=== PATIENT | female | born 2000 | race African-American/Black ===

== ENCOUNTER 2021-02-01 18:23 | Emergency (ER) | payer MEDICAID ==
[~2021-02-01] VITALS: Ht 157.5 cm; Wt 81.2 kg
[~2021-02-01 18:23] MED LIST: PRON INH
[2021-02-01 19:11] VITALS: BP 118/78
[2021-02-01] MEDS ORDERED: ONDANSETRON 4 MG ODT PO ONE (19:45)
[2021-02-01 21:06] VITALS: BP 122/81
[2021-02-01] MEDS ORDERED: ONDA4TAB PO (21:07)
== END 2021-02-01 21:22 | disposition home or self-care (01) ==
LOC: MED 18:23
DX: R11.2 Nausea with vomiting, unspecified (principal); R19.7 Diarrhea, unspecified; J45.909 Unspecified asthma, uncomplicated; Z20.822 Contact with and (suspected) exposure to COVID-19
CPT/HCPCS: 81025; 99283; Q0162; U0003

== ENCOUNTER 2021-02-05 20:51 | Emergency (ER) | payer MEDICAID ==
[~2021-02-05] VITALS: Ht 157.5 cm; Wt 76.7 kg
[~2021-02-05 20:51] MED LIST changes: +ONDA4TAB PO
[2021-02-05 21:03] VITALS: BP 115/73
[2021-02-05] MEDS ORDERED: METOCLOPRAMIDE 10 MG TAB PO ONE (22:20)
[2021-02-05] MEDS ORDERED: KETOROLAC 30 MG/ML VIAL IM ONE (22:45)
[2021-02-05] MEDS ORDERED: METO-486 PO (23:48)
[2021-02-05] MEDS ORDERED: KETOROLAC 30 MG/ML VIAL ONE (23:51)
[2021-02-05] MEDS ORDERED: METOCLOPRAMIDE 10 MG TAB ONE (23:51)
[2021-02-06 00:16] VITALS: BP 118/78
== END 2021-02-06 00:16 | disposition home or self-care (01) ==
LOC: MED 20:51
DX: A08.4 Viral intestinal infection, unspecified (principal); R11.10 Vomiting, unspecified
CPT/HCPCS: 71045; 74018; 96372; 99284; J1885; J8597

== ENCOUNTER 2021-02-09 22:06 | Emergency (ER) | payer MEDICAID ==
[~2021-02-09] VITALS: Ht 157.5 cm; Wt 76.7 kg
[~2021-02-09 22:06] MED LIST changes: +METO-486 PO
[2021-02-09 22:17] VITALS: BP 120/94
--- NOTE | 2021-02-09 22:24 | NUR ---
Pt ambulated to [facility] w/ steady gait. VSS.
--- NOTE | 2021-02-09 22:43 | NUR ---
Pt ambulated to ER bed 11 w/ steady gait.
--- NOTE | 2021-02-09 23:15 | NUR ---
PATIENT PRESENTS TO ED WITH NAUSEA AND VOMITTING FOR A FEW DAYS. PT STATES THAT SHE WAS GIVEN ANTIEMETIC BEFORE (ZOFRAN) BUT IT DOESNT "SEEM TO WORK". SKIN IS PINK/WARM/DRY; AAOX4 WITH EVEN AND STEADY GAIT; LUNGS CLEAR BL; HR EVEN AND REGULAR; PT DENIES ANY FEVER, CP, SOB, OR COUGH AT THIS TIME; PATIENT STATES PAIN OF 0/10 AT THIS TIME; VSS; PATIENT POSITIONED FOR COMFORT; HOB ELEVATED; BEDRAILS UP X2; BED DOWN. ER MD MADE AWARE OF PT STATUS. PMH: ASTHMA NKA
--- NOTE | 2021-02-09 23:26 | NUR ---
DR WEINSTEIN AT BEDSIDE EXAMINING PT
[2021-02-09] MEDS ORDERED: NACL 0.9% 1,000 ML IV ONE (23:30)
[2021-02-09] MEDS ORDERED: METOCLOPRAMIDE 10 MG/2 ML INJ VIAL IVP ONE (23:35)
--- NOTE | 2021-02-09 23:35 | NUR ---
LAB AT BEDSIDE
[2021-02-09 23:50] LABS: HEMATOCRIT 34.3 % (36-48); HEMOGLOBIN 11.1 g/dL (12.0-16.0); MEAN CORPUSCULAR HEMOGLOBIN 24 pg (27-31); MEAN CORPUSCULAR HGB CONC 32 g/dL (33-37); MEAN CORPUSCULAR VOLUME 74.5 fL (80-94); PLATELET COUNT (AUTO) 223 K/uL (140-450); RED BLOOD CELL COUNT(AUTO) 4.61 MIL/uL (4.20-5.40); RED CELL DISTRIBUTION WIDTH 18.9 % (11.6-13.7)
--- NOTE | 2021-02-10 | NUR ---
URINE SAMPLE HANDED TO JARRED PHLEB
[2021-02-10 00:03] LABS: ALBUMIN 3.6 g/dL (3.4-5.0); ANION GAP 14.7 (8-16); ASPARTATE AMINOTRANSFERASE 9 U/L (15-37); CARBON DIOXIDE 25.5 mmol/L (21-32); CHLORIDE 104 mmol/L (98-107); GFR ARICAN-AMERICAN 90 mL/min (>90); GLUCOSE 91 mg/dL (74-106); POTASSIUM 3.2 mmol/L (3.5-5.1); SODIUM SERUM 141 mmol/L (136-145); TOTAL BILIRUBIN 0.4 mg/dL (0.0-1.0); UREA NITROGEN, BLOOD 10 mg/dL (7-18)
[2021-02-10 00:04] LABS: ACETAMINOPHEN < 0.5 ug/ml (10-30); SALICYLATE < 2.8 mg/dL (2.8-20.0)
[2021-02-10 00:08] LABS: LYMPHOCYTES % (MANUAL) 12 % (20-46); MONOCYTES % (MANUAL) 10 % (5-12)
[2021-02-10 01:38] LABS: BARBITURATE, URINE NEGATIVE ng/ml (NEG <=200); BENZODIAZEPINE, URINE NEGATIVE ng/mL (NEG <=200); CANNABINOID, URINE POSITIVE ng/mL (NEG <=50); COCAINE, URINE NEGATIVE ng/mL (NEG <=300); OPIATE, URINE NEGATIVE ng/mL (NEG <=2000); PHENCYCLIDINE SCREEN,URINE NEGATIVE ng/mL (NEG <=25)
[2021-02-10 02:29] VITALS: BP 120/94
--- NOTE | 2021-02-10 02:30 | NUR ---
Patient discharged with v/s stable. Written and verbal after care instructions given and explained. Patient verbalized understanding. Ambulatory with steady gait. All questions addressed prior to discharge. Advised to follow up with PMD.
== END 2021-02-10 02:30 | disposition home or self-care (01) ==
LOC: MED 22:06
DX: F12.188 Cannabis abuse with other cannabis-induced disorder (principal); J45.909 Unspecified asthma, uncomplicated; Z79.899 Other long term (current) drug therapy
CPT/HCPCS: 36415; 80053; 80305; 83690; 85025; 93005; 96361; 96374; 99284; G0480; G0482; J2765; J7030